=== PATIENT | female | born 1965 | race African-American/Black ===

== ENCOUNTER 2021-04-15 09:43 | Emergency (ER) | payer MEDICARE ==
[~2021-04-15] VITALS: Ht 167.6 cm; Wt 79.5 kg
[2021-04-15 12:00] VITALS: BP 129/65
== END 2021-04-15 12:18 | disposition home or self-care (01) ==
LOC: EMS 09:46
DX: R04.0 Epistaxis (principal)
CPT/HCPCS: 99281; Z7502

== ENCOUNTER 2024-06-11 13:28 | Emergency (ER) | payer OTHER ==
[~2024-06-11] VITALS: Ht 162.6 cm; Wt 54.5 kg
[2024-06-11 16:04] LABS: BASOPHILS % (AUTO) 0.5 % (0.0-2.0); EOSINOPHILS % (AUTO) 2.5 % (1.0-6.0); HEMATOCRIT 39.1 % (36-46); HEMOGLOBIN 12.7 g/dL (12.0-16.0); LYMPHOCYTES # (AUTO) 3.5 K/uL (1.0-4.8); LYMPHOCYTES % (AUTO) 59.1 % (22.0-44.0); MEAN CORPUSCULAR HEMOGLOBIN 30.8 pg (26.0-34.0); MEAN CORPUSCULAR HGB CONC 32.5 G/dL (31.0-37.0); MEAN CORPUSCULAR VOLUME 95 fL (80-100); MONOCYTES # (AUTO) 0.6 K/uL (0.1-1.0); MONOCYTES % (AUTO) 10.8 % (2.0-9.0); NEUTROPHILS # (AUTO) 1.6 K/uL (1.8-7.7); NEUTROPHILS % (AUTO) 27.1 % (40.0-70.0); PLATELET COUNT (AUTO) 140 K/uL (150-450); RED BLOOD CELL COUNT(AUTO) 4.13 MIL/uL (4.00-5.20); RED CELL DISTRIBUTION WIDTH 12.7 % (11.5-14.5)
[2024-06-11 16:15] LABS: ANION GAP 8 mmol/L (8-16); CALCIUM, TOTAL 9.2 mg/dL (8.8-10.5); CARBON DIOXIDE 30 mmol/L (22-29); CHLORIDE 101 mmol/L (98-107); CREATININE 0.67 mg/dL (0.60-1.30); GLOMERULAR FILTR. RATE CALC > 60 mL/min (>60); GLUCOSE,RANDOM 110 mg/dL (70-110); POTASSIUM 4.1 mmol/L (3.5-5.1); SODIUM SERUM 139 mmol/L (136-145); UREA NITROGEN, BLOOD 15 mg/dL (7-18)
[2024-06-11 16:19] LABS: RBC MORPHOLOGY COMMENT NORMAL RBC MORPH
[2024-06-11] MEDS: KETOROLAC TROMETHAMINE 30 MG/ML VIAL IM ONE (16:22)
[2024-06-11] MEDS: LIDOCAINE 5% TRANSDERMAL PATCH TD ONE (16:23)
[2024-06-11 16:27] LABS: TROPONIN I-HIGH SENSITIVITY Less Than 4 ng/L (<51)
[2024-06-11 18:04] VITALS: BP 139/83; PULSE 73; RESP 16; TEMP 98.3; O2SAT 100
== END 2024-06-11 18:09 | disposition home or self-care (01) ==
LOC: EMS 13:35
DX: M25.512 Pain in left shoulder (principal); I10 Essential (primary) hypertension; F12.90 Cannabis use, unspecified, uncomplicated; Z87.11 Personal history of peptic ulcer disease; Z86.19 Personal history of other infectious and parasitic diseases; Z98.890 Other specified postprocedural states
CPT/HCPCS: 99285; 71045; 80048; 84484; 85025; 36415; 73030; 93005; 96372; J1885